=== PATIENT | male | born 1990 | race Caucasian/White ===

== ENCOUNTER 2019-01-25 10:39 | Emergency (ER) | payer MEDICAID ==
[~2019-01-25] VITALS: Ht 167.6 cm; Wt 70.0 kg
[~2019-01-25 10:39] MED LIST: divalproex; olanzapine
[2019-01-25 11:23] LABS: BASOPHILS # (AUTO) 0.01 x10^3/uL (0-0.1); BASOPHILS % (AUTO) 0 % (0-1); EOSINOPHILS % (AUTO) 0 % (1-7); LYMPHOCYTES # (AUTO) 0.88 x10^3/uL (1-3.4); LYMPHOCYTES % (AUTO) 9 % (22-44); MD NO; MEAN CORPUSCULAR HEMOGLOBIN 29.6 pg (27.5-34.5); MEAN CORPUSCULAR HGB CONC 32.8 g/dL (33.2-36.2); MEAN CORPUSCULAR VOLUME 90.3 fL (81-97); MEAN PLATELET VOLUME 9.7 fL (7.4-10.4); MONOCYTES # (AUTO) 0.43 x10^3/uL (0.2-0.8); MONOCYTES % (AUTO) 4 % (2-9); NEUTROPHILS # (AUTO) 8.96 x10^3/uL (1.8-6.8); NEUTROPHILS % (AUTO) 87 % (42-75); PLATELET COUNT 287 x10^3/uL (130-400); RED BLOOD COUNT 5.24 x10^6/uL (4.38-5.82); RED CELL DISTRIBUTION WIDTH 14.1 % (9.4-14.8)
[2019-01-25 11:35] LABS: CHLORIDE 112 mmol/L (98-107)
--- NOTE | 2019-01-25 11:41 | NUR ---
PT BACK FROM CT. URINE COLLECTED/WALKED TO LAB. SEIZURE PAD TO RAIL. PT PLACED IN GOWN AND ON HEART MONITOR, BP CUFF, PULSE OX. PT DENIES ANY SX AT THIS TIME. GF AT BS, CALL LIGHT WITHIN REACH.
[2019-01-25 11:47] LABS: ALANINE AMINOTRANSFERASE 20 U/L (12-78); ALBUMIN 4.3 g/dL (3.4-5.0); ALKALINE PHOSPHATASE 70 U/L (45-117); ANION GAP 6 mmol/L (5-15); BILIRUBIN,TOTAL 0.5 mg/dL (0.2-1.0); CALCIUM 9.3 mg/dL (8.5-10.1); CREATININE 1.02 mg/dL (0.7-1.3); SALICYLATE LEVEL 2.9 mg/dL (2.8-20.0); TOTAL PROTEIN 7.7 g/dL (6.4-8.2)
--- NOTE | 2019-01-25 12:06 | NUR ---
RECEIVED REPORT FROM JESSY LUNA. ASSUMING CARE AT THIS TIME.
--- NOTE | 2019-01-25 12:10 | NUR ---
REPORT TO MIGUE LUNA, TRANSFER OF CARE AT THIS TIME.
--- NOTE | 2019-01-25 12:10 | NUR ---
PT RESTING COMFORTABLY ON GURNEY. DENIES ANY MORE SEIZURE ACTIVITY SINCE ARRIVAL. NADN. FAMILY AT BEDSIDE.
[2019-01-25 12:12] LABS: BARBITURATE SCREEN, URINE Negative (Negative); BENZODIAZEPINE SCREEN, URINE Negative (Negative); CANNABINOID SCREEN, URINE Positive (Negative); COCAINE SCREEN, URINE Negative (Negative); METHADONE SCREEN, URINE Negative (Negative); OPIATE SCREEN, URINE Negative (Negative)
[2019-01-25 12:14] LABS: AMPHETAMINE SCREEN, URINE Negative (Negative)
--- NOTE | 2019-01-25 12:50 | NUR ---
ALL RESULTS ARE BACK AT THIS TIME. CHART UP FOR RECHECK.
[2019-01-25 13:42] VITALS: BP 97/69
--- NOTE | 2019-01-25 13:43 | NUR ---
PT RESTING COMFORTABLY ON GURNEY. DENIES ANY MORE SEIZURE ACTIVITIY. NADN. FAMILY AT [facility].
== END 2019-01-25 13:55 | disposition home or self-care (01) ==
LOC: ED 13:30
DX: R56.9 Unspecified convulsions (principal); R51 Headache
CPT/HCPCS: 36415; 70450; 80053; 80307; 82140; 83605; 85025; 93005; 99284

== ENCOUNTER 2019-02-17 08:34 | Outpatient (CLI) | payer MEDICAID | END 2019-02-17 23:59 | disposition home or self-care (01) | LOC: CARD 08:34 | PROVIDERS: ATTEND Registered Nurse | DX: R56.9 Unspecified convulsions (principal) | CPT/HCPCS: 95819 ==